=== PATIENT | female | born 1990 | race Caucasian/White ===

== ENCOUNTER 2021-08-17 13:18 | Outpatient (CLI) | payer BC, SELFPAY ==
--- NOTE | ~2021-08-17 | MMUS_ITS ---
EXAMINATION: MM diagnostic alyssa RT w gerardo, US breast RT limited HISTORY: Right breast and axillary lumps. TECHNIQUE: Additional 3-D tomosynthesis images of the right breast were performed and synthetic 2-D i mages were generated. CAD analysis was submitted and interpreted. High resolution Limited right breas t ultrasound was performed. COMPARISON: 05/31/2017 BREAST PARENCHYMAL COMPOSITION: Breast composed of scattered areas of fibroglandular density FINDINGS: MAMMOGRAPHIC FINDINGS: Decreased size of lobulated right breast mass, upper central aspect of the right breast measuring 2.4 cm compared with 3.2 cm greatest dimension on prior examination, consider benign. No new masses, iraida cifications or architectural distortion to suggest malignancy. ULTRASOUND: Limited right breast ultrasound: Normal sonographic appearance to the right axilla without focal mass . At 1:00, 5 cm from the nipple there is an oval hypoechoic mass without internal vascularity or sign ificant posterior features measuring 2.6 x 1.6 x 1.2 cm compared with 2.9 x 2.4 x 2.1 cm on prior exa mination, most compatible with benign fibroadenoma. IMPRESSION: 1. No evidence for malignancy in the right breast. Decreased size of benign right breast mass. BI-RADS CATEGORY 2 - BENIGN FINDINGS Reviewed, dictated and finalized at location A. IMPRESSION: 1. No evidence for malignancy in the right breast. Decreased size of benign rig ht breast mass. BI-RADS CATEGORY 2 - BENIGN FINDINGS
== END 2021-08-17 13:19 | disposition home or self-care (01) ==
LOC: ANHIMG 13:22
PROVIDERS: Visit Provider Nurse Practitioner Women's Health
DX: R22.31 Localized swelling, mass and lump, right upper limb (principal); D24.1 Benign neoplasm of right breast
CPT/HCPCS: 76642; 77061; 77065; G0279